=== PATIENT | male | born 1975 | race African-American/Black ===

== ENCOUNTER 2016-07-11 15:56 | Emergency (ER) | payer SELFPAY ==
[~2016-07-11] VITALS: Ht 193 cm; Wt 93.0 kg
[~2016-07-11 15:56] MED LIST: CIPR500T4 PO; HYDR-3533 PO; METR-1 PO; PROM25TA5 PO
[2016-07-11 15:58] VITALS: BP 120/71; PULSE 96; RESP 16; TEMP 98; O2SAT 96
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
[2016-07-11] MEDS ORDERED: SODIUM CHLOR 0.9% 1000 ML INJ 1,000 ML IV ONE (17:42)
[2016-07-11] MEDS ORDERED: KETOROLAC TROMETHAMINE 30 MG/ML (IVP) VIAL IVP ONE (17:45)
[2016-07-11] MEDS ORDERED: diphenhydrAMINE HCL 50 MG/ML VIAL IVP ONE (17:45)
[2016-07-11] MEDS ORDERED: PROCHLORPERAZINE INJ 10 MG/2 ML VIAL IVP ONE (17:45)
[2016-07-11] MEDS ORDERED: SODIUM CHLORIDE 0.9% FLUSH 5 ML FLUSH IVF PRN (17:45)
[2016-07-11 18:28] LABS: AUTOMATED NEUTROPHIL # 4.1 TH/MM3 (1.8-7.7); BASOPHIL # 0.1 TH/MM3 (0-0.2); BASOPHIL % 0.9 % (0.0-2.0); EOSINOPHIL # 0.2 TH/MM3 (0-0.4); EOSINOPHIL % 2.5 % (0.0-4.0); HEMO FLAGS DIFF FINAL; LYMPH % 39.9 % (9.0-44.0); LYMPHOCYTE # 3.2 TH/MM3 (1.0-4.8); MEAN CELL VOLUME 93.6 FL (80.0-100.0); MEAN CORPUSCULAR HEMOGLOBIN 31.8 PG (27.0-34.0); MONO % 5.9 % (0.0-8.0); NEUT % 50.8 % (16.0-70.0); PLATELET COUNT 312 TH/MM3 (150-450); RED BLOOD COUNT 4.27 MIL/MM3 (4.50-5.90); RED CELL DISTRIBUTION WIDTH 13.7 % (11.6-17.2); WHITE BLOOD COUNT 8.2 TH/MM3 (4.0-11.0)
[2016-07-11 18:34] VITALS: O2SAT 96
[2016-07-11 18:43] LABS: APTT (PATIENT) 25.7 SEC (24.3-30.1); PROTHROMBIN TIME - PATIENT 10.6 SEC (9.8-11.6)
[2016-07-11 19:13] LABS: BICARBONATE 28.6 MEQ/L (21.0-32.0)
--- NOTE | 2016-07-11 19:46 | PD ---
Data Data Last Documented VS Vital Signs Date Time Temp Pulse Resp B/P Pulse Ox O2 Delivery O2 Flow Rate FiO2 07/11/16 18:34 96 Room Air 07/11/16 15:58 98.0 96 16 120/71 Orders Complete Blood Count With Diff (07/11/16 17:42) Basic Metabolic Panel (Bmp) (07/11/16 17:42) Prothrombin Time / Inr (Pt) (07/11/16 17:42) Act Partial Throm Time (Ptt) (07/11/16 17:42) Ecg Monitoring (07/11/16 17:42) Iv Access Insert/Monitor (07/11/16 17:42) Oximetry (07/11/16 17:42) Sodium Chloride 0.9% Flush (Ns Flush) (07/11/16 17:45) Ketorolac Inj (Toradol Inj) (07/11/16 17:45) Prochlorperazine Inj (Compazine Inj) (07/11/16 17:45) Diphenhydramine Inj (Benadryl Inj) (07/11/16 17:45) Sodium Chlor 0.9% 1000 Ml Inj (Ns 1000 M (07/11/16 17:42) Cta Brain W Iv Contrast W 3d (07/11/16 17:46) Ct Brain W/O Iv Contrast(Rout) (07/11/16 18:01) Consult Vascular Access Team (07/11/16 ) Vascular Poc Ultrasound (07/11/16 ) Labs Laboratory Tests Test 07/11/16 17:50 White Blood Count 8.2 TH/MM3 Red Blood Count 4.27 MIL/MM3 Hemoglobin 13.6 GM/DL Hematocrit 40.0 % Mean Corpuscular Volume 93.6 FL Mean Corpuscular Hemoglobin 31.8 PG Mean Corpuscular Hemoglobin 34.0 % Concent Red Cell Distribution Width 13.7 % Platelet Count 312 TH/MM3 Mean Platelet Volume 8.5 FL Neutrophils (%) (Auto) 50.8 % Lymphocytes (%) (Auto) 39.9 % Monocytes (%) (Auto) 5.9 % Eosinophils (%) (Auto) 2.5 % Basophils (%) (Auto) 0.9 % Neutrophils # (Auto) 4.1 TH/MM3 Lymphocytes # (Auto) 3.2 TH/MM3 Monocytes # (Auto) 0.5 TH/MM3 Eosinophils # (Auto) 0.2 TH/MM3 Basophils # (Auto) 0.1 TH/MM3 CBC Comment DIFF FINAL Differential Comment Prothrombin Time 10.6 SEC Prothromb Time International 1.0 RATIO Ratio Activated Partial 25.7 SEC Thromboplast Time Sodium Level 136 MEQ/L Potassium Level 5.0 MEQ/L Chloride Level 103 MEQ/L Carbon Dioxide Level 28.6 MEQ/L Anion Gap 4 MEQ/L Blood Urea Nitrogen 7 MG/DL Creatinine 0.99 MG/DL Estimat Glomerular Filtration 103 ML/MIN Rate Random Glucose 80 MG/DL Calcium Level 8.3 MG/DL MDM Supervised Visit with SEGUN: Yes Narrative Course The history, exam, and medical decision-making in the associated midlevel provider note were completed with my assistance. I reviewed and agree with the findings presented. I attest that I had a [id number] encounter with the patient on the same day, and personally performed and documented my assessment and findings in the medical record. *My assessment and Findings: This is a 40-year-old male who has a history of episodic headaches that and description sound to be cluster headaches. He has a history of a father who of a subarachnoid hemorrhage. I think it's reasonable to obtain a CT and a CTA of the brain to rule out aneurysm. If normal the patient can be discharged home. Scripts No Active Prescriptions or Reported Meds Vonnei Aguirre MD Jul 11, 2016 19:46
[2016-07-11] MEDS ORDERED: IOHEXOL 350 MG/ML 10 ML VIAL (for RAD DIAG) IV ONE (21:08)
--- NOTE | 2016-07-11 21:16 | RADRPT ---
EXAM DATE/TIME: 07/11/2016 21:02 [facility] COMPARISON: CT BRAIN W/O CONTRAST, June 17, 2009, 15:48. INDICATIONS : Episodic headaches. RADIATION DOSE: 56.35 CTDIvol (mGy) MEDICAL HISTORY : None SURGICAL HISTORY : Bowel resection. ENCOUNTER: Initial ACUITY: 1 month PAIN SCALE: 8/10 LOCATION: Left temporal TECHNIQUE: Multiple contiguous axial images were obtained of the head. Using automated exposure control and adj ustment of the mA and/or kV according to patient size, radiation dose was kept as low as reasonably a chievable to obtain optimal diagnostic quality images. FINDINGS: CEREBRUM: The ventricles are normal for age. No evidence of midline shift, mass lesion, hemorrhage or acute in farction. No extra-axial fluid collections are seen. POSTERIOR FOSSA: The cerebellum and brainstem are intact. The 4th ventricle is midline. The cerebellopontine angle i s unremarkable. EXTRACRANIAL: The visualized portion of the orbits is intact. SKULL: The calvaria is intact. No evidence of skull fracture. CONCLUSION: Normal examination. Williams Herrera MD on July 11, 2016 at 21:14 Board Certified Radiologist. This report was verified electronically.
--- NOTE | 2016-07-11 21:35 | RADRPT ---
EXAM DATE/TIME: 07/11/2016 21:01 [facility] COMPARISON: No previous studies available for comparison. INDICATIONS : Episodic headaches. IV CONTRAST: 75 cc Omnipaque 350 (iohexol) IV RADIATION DOSE: 17.63 CTDIvol (mGy) MEDICAL HISTORY : None SURGICAL HISTORY : Bowel resection. ENCOUNTER: Initial ACUITY: 1 month PAIN SCALE: 8/10 LOCATION: Left temporal TECHNIQUE: Volumetric scanning was performed using a multi-row detector CT scanner. The data was post processed with a variety of visualization algorithms including full volume maximum intensity projection, multi -planar sliding thin slab reformation, curved planar reformation, and surface rendering techniques. Using automated exposure control and adjustment of the mA and/or kV according to patient size, radiat ion dose was kept as low as reasonably achievable to obtain optimal diagnostic quality images. FINDINGS: There is excellent visualization of the major intracranial arteries out to the second-order branch ve ssels. There is no evidence for aneurysm, vessel truncation or stenosis, and no evidence for vascula r malformation. Anterior communicating artery is not seen. Small bilateral posterior communicating arteries. Dominant left vertebral artery. Basilar artery is unremarkable. Anterior, posterior and middle cerebral arter ies are normal. CONCLUSION: 1. No aneurysm or stenosis. 2. Normal variants. Williams Herrera MD on July 11, 2016 at 21:31 Board Certified Radiologist. This report was verified electronically.
[2016-07-11 22:02] VITALS: BP 113/66; PULSE 71; RESP 18; TEMP 98.1; O2SAT 100
== END 2016-07-11 22:35 | disposition home or self-care (01) ==
LOC: NEPC 15:56
DX: R51 Headache (principal); Z72.0 Tobacco use
CPT/HCPCS: 70450; 70496; 80048; 85025; 85610; 85730; 96374; 96375; 99284; J0780; J1200; J1885; J7030; Q9967

== ENCOUNTER 2017-01-14 14:42 | Emergency (ER) | payer SELFPAY ==
[~2017-01-14] VITALS: Ht 193 cm; Wt 95.0 kg
[2017-01-14 14:44] VITALS: BP 127/75; PULSE 107; RESP 17; TEMP 98.6; O2SAT 98
--- NOTE | 2017-01-14 14:47 | PD ---
Physical Exam Time Seen by Provider: 14:45 Narrative 41yo M c/o abd pain, vomiting, diarrhea since Wednesday night. Denies fevers. + lightheadedness. Patient seen in triage. VS reviewed. Awaiting bed placement. Data Data Last Documented VS Vital Signs Date Time Temp Pulse Resp B/P (MAP) Pulse Ox O2 Delivery O2 Flow Rate FiO2 01/14/17 14:44 98.6 107 17 127/75 (92) 98 Room Air MDM Supervised Visit with SEGUN: No Scripts No Active Prescriptions or Reported Meds Natacha Farooq Jan 14, 2017 14:47
[2017-01-14] MEDS ORDERED: SODIUM CHLORIDE 0.9% FLUSH 10 ML FLUSH IV FLUSH PRN (15:00)
[2017-01-14 15:12] LABS: AUTOMATED NEUTROPHIL # 5.7 TH/MM3 (1.8-7.7); BASOPHIL % 0.5 % (0.0-2.0); EOSINOPHIL # 0.3 TH/MM3 (0-0.4); HEMATOCRIT 44.9 % (39.0-51.0); HEMO FLAGS DIFF FINAL; LYMPH % 31.4 % (9.0-44.0); LYMPHOCYTE # 3.2 TH/MM3 (1.0-4.8); MEAN CELL VOLUME 93.6 FL (80.0-100.0); MEAN CORPUSCULAR HEMOGLOBIN 31.1 PG (27.0-34.0); MEAN CORPUSCULAR HGB CONC 33.2 % (32.0-36.0); MONO % 9.2 % (0.0-8.0); NEUT % 55.9 % (16.0-70.0); PLATELET COUNT 367 TH/MM3 (150-450); RED CELL DISTRIBUTION WIDTH 13.8 % (11.6-17.2); WHITE BLOOD COUNT 10.2 TH/MM3 (4.0-11.0)
[2017-01-14 15:25] LABS: ALT (GPT) 16 U/L (12-78); ANION GAP 9 MEQ/L (5-15); AST (GOT) 19 U/L (15-37); BICARBONATE 26.6 MEQ/L (21.0-32.0); BLOOD UREA NITROGEN 9 MG/DL (7-18); CHLORIDE 106 MEQ/L (98-107); GLOMERULAR FILTRATION RATE 82 ML/MIN (>89); POTASSIUM 3.7 MEQ/L (3.5-5.1); SODIUM (NA) 142 MEQ/L (136-145)
[2017-01-14 15:28] LABS: ALKALINE PHOSPHATASE 83 U/L (45-117); TOTAL BILIRUBIN ADULT 0.4 MG/DL (0.2-1.0)
[2017-01-14] MEDS ORDERED: SODIUM CHLOR 0.9% 1000 ML INJ 1,000 ML IV ONE (15:30)
[2017-01-14] MEDS ORDERED: ONDANSETRON HCL 4 MG/2 ML VIAL IV PUSH ONE (15:30)
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
[2017-01-14] MEDS ORDERED: PROM25TA10 PO (17:25)
== END 2017-01-14 17:55 | disposition home or self-care (01) ==
LOC: NEPD 14:42
DX: K52.9 Noninfective gastroenteritis and colitis, unspecified (principal); R00.0 Tachycardia, unspecified; R42 Dizziness and giddiness; Z72.0 Tobacco use
CPT/HCPCS: 80053; 83690; 85025; 96361; 96374; 99284; J2405; J7030

== ENCOUNTER 2017-04-12 18:53 | Emergency (ER) | payer SELFPAY ==
[~2017-04-12 18:53] MED LIST changes: -CIPR500T4 PO; -HYDR-3533 PO; -METR-1 PO; +PROM25TA10 PO; -PROM25TA5 PO
[2017-04-12 18:55] VITALS: BP 126/70; PULSE 98; RESP 16; TEMP 97.7; O2SAT 98
--- NOTE | 2017-04-12 20:42 | PD ---
HPI Chief Complaint: Pain: Acute or Chronic Time Seen by Provider: 20:33 Travel History International Travel<30 days: No Contact w/Intl Traveler<30days: No Traveled to known affect area: No History of Present Illness HPI 41-year-old white male presents to emergency Department with complaints of bilateral foot pain. He states that he is had foot pain now for nearly 2 years. The pains are constant but can be worse at sometimes. He states that they've been worse over the last several months. Pain is localized to the distal forefoot both feet the left is greater than the right. He denies any trauma. He has not seen anyone regarding his feet yet. He denies any numbness or tingling. 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 History Past Medical Histgory Medical History: Denies Significant Hx Tetanus Vaccination: < 5 Years Social History Alcohol Use: Yes (socially) Tobacco Use: Yes Allergies-Medications (Allergen,Severity, Reaction): Coded Allergies: No Known Allergies (Verified , 01/14/17) Reported Meds & Prescriptions Reported Meds & Active Scripts Active Phenergan (Promethazine HCl) 25 Mg Tablet 25 Mg PO Q8HR PRN Review of Systems General / Constitutional: No: Fever Eyes: No: Visual changes HENT: No: Headaches Cardiovascular: No: Chest Pain or Discomfort Respiratory: No: Shortness of Breath Gastrointestinal: No: Abdominal Pain Genitourinary: No: Dysuria Musculoskeletal: Positive: Arthralgias, Limited ROM, Pain, No: Weakness, Edema Skin: No Rash Neurologic: No: Weakness Psychiatric: No: Depression Endocrine: No: Polydipsia Hematologic/Lymphatic: No: Easy Bruising Physical Exam Narrative GENERAL: This is a well-nourished, well-developed patient, in no apparent distress. SKIN: No rashes, ecchymoses or lesions. Warm and dry. HEAD: Atraumatic. Normocephalic. EYES: PERRL, EOMI, no discharge or injection. No scleral icterus. EARS: Clear NOSE: Nasal turbinates appear normal. THROAT: Mucosa pink and moist. Airway patent. NECK: Trachea midline. supple, moves head freely. LUNGS: Clear to auscultation. CV: Regular in rhythm. ABDOMEN: Soft nontender. EXT: No clubbing cyanosis or edema. Examination of both feet reveal large plantar warts on the distal forefoot. There is no erythema, edema or skin breakdown. He has intact sensation with good distal pulses. He complains of diffuse pain forefoot and toes. No pain in the heel, Achilles, ankle. Data Data Last Documented VS Vital Signs Date Time Temp Pulse Resp B/P (MAP) Pulse Ox O2 Delivery O2 Flow Rate FiO2 04/12/17 18:55 97.7 98 16 126/70 (88) 98 Room Air MDM Medical Screen Exam Complete: Yes Emergency Medical Condition: No Differential Diagnosis MDM: High Differential diagnoses: Fracture, sprain, strain, dislocation, contusion, neurovascular injury, plantar warts Narrative Course A medical screening exam was performed: At the time of evaluation the presenting medical condition was determined not to be of an emergent nature. The patient was given the option of receiving additional care, but declined. Patient was given options for additional community resources from which to obtain care. The Patient Has Been advised to seek medical attention for their presenting complaint. The patient has been advised to return to the ER at any time if an emergent condition develops. Primary Impression: Encounter for medical screening examination Condition: Tank Sparks Apr 12, 2017 20:42
== END 2017-04-12 20:51 | disposition left against medical advice (07) ==
LOC: NEPK 18:53
DX: M79.672 Pain in left foot (principal); M79.671 Pain in right foot; Z72.0 Tobacco use
CPT/HCPCS: 99281

== ENCOUNTER 2017-08-27 23:58 | Emergency (ER) | payer SELFPAY ==
[2017-08-28 00:05] VITALS: BP 138/82; PULSE 98; RESP 16; TEMP 99.3; O2SAT 100
[2017-08-28] MEDS ORDERED: DEXAMETHASONE SOD PHOS 20 MG/5 ML VIAL IM ONE (00:45)
[2017-08-28] MEDS ORDERED: BENZATHINE IM ONE (00:45)
[2017-08-28] MEDS ORDERED: PROCAINE IM ONE (00:45)
[2017-08-28] MEDS ORDERED: MAGICADU2 SWISH-SWAL (00:47)
[2017-08-28] MEDS ORDERED: AMOX500T PO (00:47)
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
[2017-08-28] MEDS ORDERED: PENICILLIN G BENZATHINE 1,200,000 UNITS/2 ML SYRINGE IM ONE (01:20)
== END 2017-08-28 01:15 | disposition home or self-care (01) ==
LOC: NEPD 23:58
DX: J03.90 Acute tonsillitis, unspecified (principal); Z72.0 Tobacco use
CPT/HCPCS: 96372; 99283; J0561; J1100